=== PATIENT | female | born 1935 | race Caucasian/White ===

== ENCOUNTER 2019-12-31 23:23 | Observation (INO) | payer MEDICARE, OTHER ==
[~2019-12-31] VITALS: Ht 154.9 cm; Wt 55.0 kg
[~2019-12-31 23:23] MED LIST: ALEN70TA60 PO; ASCO1TAB13 PO; CALC600T2 PO; CINA30TA PO; GINK120C PO; GLUC-193 PO; LACT1CAP65 PO; LEVO100T PO; MAGN400C PO; MULT-1141 PO; PANT-47 PO; POTA20PA40 PO; THEO400T PO; TRIA10.8; VITA100D6 PO; [UNRECOGNIZED DRUG - OTHER] PO
[2019-12-31 23:49] LABS: BASOPHILS # (AUTO) 0.1 X10'3 (0-0.2); EOSINOPHILS # (AUTO) 0.4 X10'3 (0-0.9); EOSINOPHILS % (AUTO) 5.7 % (0-6); HEMOGLOBIN 12.6 g/dl (12.0-16.0); LYMPHOCYTES # (AUTO) 1.9 X10'3 (1.1-4.8); LYMPHOCYTES % (AUTO) 26.7 % (21-51); MEAN CORPUSCULAR HEMOGLOBIN 27.5 PG (27.0-31.0); MEAN CORPUSCULAR HGB CONC 33.1 g/dL (33.0-36.5); MEAN PLATELET VOLUME 8.6 FL (7.4-10.4); MONOCYTES # (AUTO) 0.8 X10'3 (0-0.9); MONOCYTES % (AUTO) 11.3 % (2-12); NEUTROPHILS % (AUTO) 55.3 % (42-75); PLATELET COUNT 368 X10'3 (140-440); RED BLOOD COUNT 4.59 X10'6 (4.20-5.60); RED CELL DISTRIBUTION WIDTH 14.7 % (11.5-14.5); WHITE BLOOD COUNT 7.2 X10'3 (4.5-11.0)
[2019-12-31 23:58] LABS: ALANINE AMINOTRANSFERASE 18 U/L (12-78); ALBUMIN 3.7 G/DL (3.4-5.0); ALKALINE PHOSPHATASE 85 IU/L (46-116); ANION GAP 7 (8-16); ASPARTATE AMINO TRANSFERASE 19 U/L (10-37); BILIRUBIN,TOTAL 0.3 MG/DL (0.1-1.0); BLOOD UREA NITROGEN 27 MG/DL (7-18); BUN/CREATININE RATIO 19.7 (6.6-38.0); CALCIUM 8.6 MG/DL (8.5-10.1); CHLORIDE 108 MMOL/L (99-107); CREATININE 1.37 MG/DL (0.40-0.90); GLUCOSE 126 MG/DL (70-104); POTASSIUM 3.5 MMOL/L (3.5-5.1); SODIUM 143 MMOL/L (135-145); TOTAL CARBON DIOXIDE 28.2 MMOL/L (24-32); TOTAL PROTEIN 7.4 G/DL (6.4-8.2); eGFR 37 ML/MIN
[2020-01-01] VITALS (10 sets, daily range): BP systolic 120–147; BP diastolic 41–65
--- NOTE | 2020-01-01 00:02 | NUR ---
PT STATES SHE HAS BEEN HAVING ALOT OF STRESS LATELY. SHE STATES HER MOM, WHOM IS 89 IS RECENTLY PLACED IN THE SNF. THAT SHE IS UP THERE EVERY DAY AND IT IS REALLY STRESSFUL TO HER.
[2020-01-01] MEDS ORDERED: normal saline 1000ml 1,000 ML IV ONE (01:22)
[2020-01-01] MEDS ORDERED: aspirin 81mg tab.chew PO ONE (01:25)
[2020-01-01 01:39] LABS: PARTIAL THROMBOPLASTIN TIME 28 SECONDS (22-32)
[2020-01-01] MEDS ORDERED: ondansetron/PF 4mg/2ml inj IV PRN (01:45)
[2020-01-01] MEDS ORDERED: magnesium 2GM in 50ml NS 50 ML IV PRN (01:45)
[2020-01-01] MEDS ORDERED: potassium CL 10mEq/100ml bag 100 ML IV PRN ×2 (01:45)
[2020-01-01] MEDS ORDERED: acetaminophen 325mg tablet PO PRN ×2 (01:45)
[2020-01-01] MEDS ORDERED: mag hydrox/Alum hydrox/simeth 30ml oral suspension PO PRN (01:45)
[2020-01-01] MEDS ORDERED: potassium Cl 20 mEq SR tablet PO PRN ×2 (01:45)
[2020-01-01] MEDS ORDERED: magnesium 4gm in 100ml NS 100 ML IV PRN (01:45)
[2020-01-01] MEDS ORDERED: magnesium hydroxide 30ml (MOM) UD suspension PO PRN (01:45)
[2020-01-01] MEDS ORDERED: magnesium Cl slow-release 64mg tablet PO PRN (01:45)
[2020-01-01 01:46] LABS: MAGNESIUM 2.1 MG/DL (1.5-2.4)
[2020-01-01] MEDS ORDERED: FLUT1BLS3 INH (01:56)
[2020-01-01] MEDS ORDERED: POTA8CAP20 PO (01:58)
[2020-01-01] MEDS ORDERED: ALBU18HF2 INH (01:58)
[2020-01-01] MEDS ORDERED: metoprolol tartrate 1mg/ml inj IV PRN (02:00)
[2020-01-01] MEDS ORDERED: aminophylline 250mg/10ml inj. IV PRN (02:00)
[2020-01-01] MEDS ORDERED: TRIA1CAP6 PO (02:00)
[2020-01-01] MEDS ORDERED: nitroGLYCERIN 0.4mg SUBLingual tab SL PRN ×2 (02:00)
[2020-01-01] MEDS ORDERED: LUTE1CAP5 PO (02:00)
[2020-01-01] MEDS ORDERED: ASPI81TA52 PO (02:00)
[2020-01-01] MEDS ORDERED: BUDE9TAB2 NAS (02:05)
--- NOTE | 2020-01-01 03:16 | NUR ---
pt placed on hospital bed for comfort
--- NOTE | 2020-01-01 03:34 | NUR ---
TUCKED PT INTO BED
--- NOTE | 2020-01-01 04:45 | NUR ---
NOTICED PATIENTS OXYGEN LEVEL DIPPED TO LOW 70S WHILE ASLEEP. I DIDN'T NOTICE ANY SLEEP APNEA. PLACED OXYGEN ON AT 2 LNC AND THAT INCREASED HER SATS TO HIGH 90S
--- NOTE | 2020-01-01 05:57 | NUR ---
PT SLEEPING. WILL ALLOW TO SLEEP.
[2020-01-01] MEDS ORDERED: regadenoson 0.4mg/5ml syringe IV ONE (06:00)
[2020-01-01] MEDS ORDERED: K and/or MAG REPLACEMENT MC SCH (08:00)
[2020-01-01] MEDS ORDERED: enoxaparin 40mg/0.4ml syringe SQ SCH (08:00)
--- NOTE | 2020-01-01 09:35 | NUR ---
Received report from Jazmin VILLANUEVA RN.
--- NOTE | 2020-01-01 10:00 | NUR ---
Arrived to room 316 A from ER at this time,
[2020-01-01] MEDS ORDERED: non-formulary drug (Alendronate Sodium* (Fosamax*) 1 TABLET) PO SCH (12:25)
[2020-01-01] MEDS ORDERED: albuterol 2.5 MG/3 ML nebule NEB PRN (12:40)
[2020-01-01] MEDS ORDERED: potassium chloride 8mEq ER tablet PO SCH (13:00)
--- NOTE | 2020-01-01 14:10 | NUR ---
Arrived back from [facility] at this time.
--- NOTE | 2020-01-01 14:59 | NUR ---
Paged hospitalist, "Leanna [phone]- Leroyan impression resulted for 316 Ursula Oropeza" Awaiting further orders.
--- NOTE | 2020-01-01 16:55 | NUR ---
Discussed discharge instructions with patient and family, no new meds ordered, to follow up with pcp, patient to make appointment. Tele dc'd, IV d/c'd with cathlon intact. Belongings sent with patient. Escorted out via [facility] staff via ambulation, without event. Eager to go home and thankful she didn't have a heart attack.
[2020-01-01] MEDS ORDERED: budesonide 0.5mg/2ml UD nebule IH SCH (20:00)
[2020-01-02] MEDS ORDERED: enoxaparin 30mg/0.3ml syringe SQ SCH (08:00)
[2020-01-02] MEDS ORDERED: multivitamins, therapeutics tablet PO SCH (08:00)
[2020-01-02] MEDS ORDERED: magnesium oxide 400mg tablet PO SCH (08:00)
[2020-01-02] MEDS ORDERED: FLUTICASONE INH SCH (08:00)
[2020-01-02] MEDS ORDERED: cinacalcet 30mg tablet PO SCH ×2 (08:00)
[2020-01-02] MEDS ORDERED: ZEAXANTHIN PO SCH (08:00)
[2020-01-02] MEDS ORDERED: aspirin 81mg tablet.DR PO SCH (08:00)
[2020-01-02] MEDS ORDERED: vitamin E 400 unit capsule PO SCH (08:00)
[2020-01-02] MEDS ORDERED: VILANTEROL INH SCH (08:00)
[2020-01-02] MEDS ORDERED: levoTHYROXINE 100mcg tablet PO SCH (08:00)
[2020-01-02] MEDS ORDERED: THEOPHYLLINE ANHYDROUS 400 MG PO SCH (08:00)
[2020-01-02] MEDS ORDERED: triamterene/HCTZ 37.5/25mg tablet PO SCH (08:00)
[2020-01-02] MEDS ORDERED: LUTEIN PO SCH (08:00)
--- NOTE | 2020-01-04 11:49 | NUR ---
Case management DC follow up: spoke to pt via telephone. reports, "doing" well. Denies cp, emergent general pain, SOB, resp distress, NV, dizziness, abd pain, HARRIS, diaphoresis. remains afebrile. verbalizes understanding of meds, why prescribed, taking as ordered, no ase r/t polypharmacy. acknowledges need to confirm follow up appt w/PCP/Pepple to discuss medications as pertains to CKD stage 3 as well as referral for home health clinician. Verbalizes understanding of s/s that would warrant 9-11/ER visit for evaluation. needs met, questions answered at DC. No further questions at this time.
== END 2020-01-01 16:55 | disposition home or self-care (01) ==
LOC: ER 23:23 → ED HOLD 01-01 02:30 → MED 3N 01-01 10:00
PROVIDERS: ADMIT Hospitalist; ATTEND Internal Medicine
DX: R07.89 Other chest pain (principal); E03.9 Hypothyroidism, unspecified; J45.909 Unspecified asthma, uncomplicated; K21.9 Gastro-esophageal reflux disease without esophagitis; M81.0 Age-related osteoporosis without current pathological fracture; Z79.899 Other long term (current) drug therapy; Z88.8 Allergy status to other drugs, medicaments and biological substances
CPT/HCPCS: 36415; 71045; 78452; 80053; 83735; 83880; 84484; 85025; 85610; 85730; 87081; 93005; 93017; 93306; 96372; 99285; A9500; G0378; J2785; J7030; J1650

== ENCOUNTER 2022-12-26 09:25 | Outpatient (CLI) | payer MEDICARE, OTHER ==
[~2022-12-26 09:25] MED LIST changes: +ALBU18HF2 INH; +ASPI81TA52 PO; +BUDE9TAB2 NAS; -CALC600T2 PO; +FLUT1BLS3 INH; -GINK120C PO; -LACT1CAP65 PO; +LUTE1CAP5 PO; -PANT-47 PO; -POTA20PA40 PO; +POTA8CAP20 PO; +TRIA1CAP88 PO
[2022-12-26 09:59] LABS: BASOPHILS # (AUTO) 0.1 X10'3 (0-0.2); BASOPHILS % (AUTO) 1.1 % (0-1); EOSINOPHILS # (AUTO) 0.3 X10'3 (0-0.9); EOSINOPHILS % (AUTO) 5.8 % (0-6); HEMATOCRIT 34.3 % (35.0-45.0); HEMOGLOBIN 11.5 g/dl (12.0-16.0); LYMPHOCYTES # (AUTO) 1.1 X10'3 (1.1-4.8); LYMPHOCYTES % (AUTO) 23.5 % (21-51); MEAN CORPUSCULAR HGB CONC 33.5 g/dL (33.0-36.5); MEAN CORPUSCULAR VOLUME 86.5 FL (78-98); MEAN PLATELET VOLUME 8.9 FL (7.4-10.4); MONOCYTES # (AUTO) 0.6 X10'3 (0-0.9); MONOCYTES % (AUTO) 11.5 % (2-12); NEUTROPHILS # (AUTO) 2.8 X10'3 (1.8-7.7); NEUTROPHILS % (AUTO) 58.1 % (42-75); PLATELET COUNT 261 X10'3 (140-440); RED BLOOD COUNT 3.97 X10'6 (4.20-5.60); RED CELL DISTRIBUTION WIDTH 15.6 % (11.5-14.5); WHITE BLOOD COUNT 4.8 X10'3 (4.5-11.0)
[2022-12-26 10:12] LABS: APTT 29 SECONDS (22-32)
[2022-12-26 10:23] LABS: ALANINE AMINOTRANSFERASE 21 U/L (12-78); ALBUMIN 4.2 G/DL (3.4-5.0); ALBUMIN/GLOBULIN RATIO 1.3 (1.1-1.5); ALKALINE PHOSPHATASE 88 IU/L (46-116); ANION GAP 13 (8-16); ASPARTATE AMINO TRANSFERASE 28 U/L (10-37); BILIRUBIN,TOTAL 0.5 MG/DL (0.1-1.0); BLOOD UREA NITROGEN 39 MG/DL (7-18); BUN/CREATININE RATIO 21.4 (6.6-38.0); CALCIUM 8.7 MG/DL (8.5-10.1); CHLORIDE 103 MMOL/L (99-107); CREATININE 1.82 MG/DL (0.40-0.90); GLUCOSE 85 MG/DL (70-104); POTASSIUM 3.6 MMOL/L (3.5-5.1); SODIUM 142 MMOL/L (135-145); TOTAL PROTEIN 7.5 G/DL (6.4-8.2); eGFR 26 ML/MIN
[2022-12-26] MEDS ORDERED: IODIXANOL 320 MG/ML INFUS..BTL 100ML IV ONE (10:52)
== END 2022-12-26 23:59 | disposition home or self-care (01) ==
LOC: RAD 09:25
PROVIDERS: ATTEND Internal Medicine Cardiovascular Disease
DX: I51.7 Cardiomegaly (principal); I35.0 Nonrheumatic aortic (valve) stenosis; R06.02 Shortness of breath; I65.29 Occlusion and stenosis of unspecified carotid artery; I70.0 Atherosclerosis of aorta; M47.814 Spondylosis without myelopathy or radiculopathy, thoracic region; Z98.890 Other specified postprocedural states
CPT/HCPCS: 36415; 71046; 71275; 74174; 80053; 85025; 85610; 85730; 94010; 94727; 94729; J3490; Q9967

== ENCOUNTER 2023-01-21 10:30 | Inpatient (IN) | payer MEDICARE, OTHER ==
[~2023-01-21] VITALS: Ht 154.9 cm; Wt 98.2 kg
[~2023-01-21 10:30] MED LIST changes: -ALEN70TA60 PO; -ASCO1TAB13 PO; -CINA30TA PO; -GLUC-193 PO; -MAGN400C PO; -MULT-1141 PO; -TRIA10.8; -VITA100D6 PO; -[UNRECOGNIZED DRUG - OTHER] PO
[2023-02-18 14:43] LABS: BASOPHILS # (AUTO) 0.1 X10'3 (0-0.2); BASOPHILS % (AUTO) 1.2 % (0-1); EOSINOPHILS # (AUTO) 0.3 X10'3 (0-0.9); EOSINOPHILS % (AUTO) 6.4 % (0-6); LYMPHOCYTES # (AUTO) 1.2 X10'3 (1.1-4.8); MEAN CORPUSCULAR HEMOGLOBIN 28.8 PG (27.0-31.0); MEAN CORPUSCULAR HGB CONC 33.1 g/dL (33.0-36.5); MEAN CORPUSCULAR VOLUME 87.1 FL (78-98); MONOCYTES # (AUTO) 0.5 X10'3 (0-0.9); MONOCYTES % (AUTO) 10.2 % (2-12); NEUTROPHILS # (AUTO) 2.6 X10'3 (1.8-7.7); NEUTROPHILS % (AUTO) 56.2 % (42-75); PRE OP HEMATOCRIT 34.9 % (35.0-45.0); PRE OP HEMOGLOBIN 11.5 g/dL (12.0-16.0); PRE OP PLATELET COUNT 261 X10'3 (140-440); RED BLOOD COUNT 4.01 X10'6 (4.20-5.60); RED CELL DISTRIBUTION WIDTH 14.3 % (11.5-14.5)
[2023-02-18 14:47] LABS: CLARITY,URINE SLIGHTLY CLOUDY (Clear); COLOR,URINE YELLOW (Yellow); GLUCOSE, URINE NEGATIVE (Neg); KETONES,URINE NEGATIVE (Neg); LEUKOCYTE ESTERASE ,URINE TRACE (Neg); NITRITES, URINE NEGATIVE (Neg); OCCULT BLOOD,URINE TRACE-INTACT (Neg); PROTEIN,URINE NEGATIVE (Neg); UROBILINOGEN,URINE 0.2 E.U/dL (0.2-1.0)
[2023-02-18 14:51] LABS: PRE OP PROTIME 10.5 SECONDS (9.0-12.0)
[2023-02-18 15:00] LABS: UA COLLECTION TYPE CLN CATCH MIDSTREAM
[2023-02-18 15:01] LABS: HYALINE CASTS 0-3 /LPF (NEGATIVE); MUCUS STRANDS FEW /LPF (Neg); SQUAMOUS EPITHELIAL CELL,UR MODERATE /LPF (FEW); TRANSITIONAL EPI CELLS,URINE MODERATE /HPF
[2023-02-18 15:02] LABS: BACTERIA,URINE FEW /HPF (Neg); RBC,URINE 0-2 /HPF (0-2); WBC,URINE 0-4 /HPF (0-4)
[2023-02-18 15:06] LABS: ALBUMIN 3.9 G/DL (3.4-5.0); ALBUMIN/GLOBULIN RATIO 1.1 (1.1-1.5); ALKALINE PHOSPHATASE 95 IU/L (46-116); BLOOD UREA NITROGEN 44 MG/DL (7-18); BUN/CREATININE RATIO 29.3 (10.0-20.0); CALCIUM 8.8 MG/DL (8.5-10.1); CHLORIDE 104 MMOL/L (99-107); PRE OP ALT 20 U/L (30-65); PRE OP ANION GAP 9 (8-16); PRE OP AST 29 U/L (10-37); PRE OP BILIRUB, TOTAL 0.3 MG/DL (0.0-1.0); PRE OP GLUCOSE 80 MG/DL (70-104); PRE OP SODIUM 141 MMOL/L (135-145); TOTAL CARBON DIOXIDE 28.4 MMOL/L (24-32); TOTAL PROTEIN 7.6 G/DL (6.4-8.2); eGFR 33 ML/MIN
[2023-02-18 15:08] LABS: PRE OP POTASSIUM 3.2 MMOL/L (3.4-5.1)
[2023-02-20] MEDS ORDERED: MUPI30OI3 TOP (11:53)
[2023-02-20] MEDS ORDERED: AZEL23SP2 (11:53)
[2023-02-20] MEDS ORDERED: FAMO40TA59 PO (11:56)
[2023-02-20] MEDS ORDERED: LEVO88CA4 PO (11:57)
[2023-02-20] MEDS ORDERED: CHOL100025 PO (12:21)
[2023-02-20] MEDS ORDERED: VITA400T10 PO (12:21)
[2023-02-20] MEDS ORDERED: LACT1CAP75 PO (12:22)
[2023-02-20] MEDS ORDERED: BIOT1CAP3 PO (12:22)
[2023-02-20] MEDS ORDERED: ZINC50CA2 PO (12:23)
[2023-02-20] MEDS ORDERED: ASCO500C17 PO (12:23)
[2023-02-20] MEDS ORDERED: CYAN50009 PO (12:23)
[2023-02-21] VITALS (21 sets, daily range): BP systolic 95–160; BP diastolic 47–74
[2023-02-21] MEDS ORDERED: ringers solution, lacted 1,000 ML IV SCH (05:00)
[2023-02-21] MEDS ORDERED: vancomycin/NS 1 GM in NS 250 ML IV ONE (05:30)
[2023-02-21] MEDS ORDERED: ondansetron/PF 4mg/2ml inj IV PRN ×2 (05:30→13:35)
[2023-02-21] MEDS ORDERED: cefazolin 2gm/D5W 100mL 100 ML IV ONE (05:30)
[2023-02-21] MEDS ORDERED: aspirin 325mg tablet PO ONE (05:30)
[2023-02-21] MEDS ORDERED: nitroPRUSSIDE (NIPRIDE) (200MCG/ML) 100ML Drip IV SCH (05:30)
[2023-02-21] MEDS ORDERED: phenylephrine inj 50 MG in normal saline 250ml IV solN IV SCH (05:30)
[2023-02-21] MEDS ORDERED: famotidine 20mg tablet PO ONE (05:30)
[2023-02-21] MEDS ORDERED: protamine sulfate 10mg/ml inj. ONE (06:37)
[2023-02-21 10:48] LABS: ALANINE AMINOTRANSFERASE 22 U/L (12-78); ALBUMIN 3.7 G/DL (3.4-5.0); ALBUMIN/GLOBULIN RATIO 1.1 (1.1-1.5); ALKALINE PHOSPHATASE 89 IU/L (46-116); ANION GAP 9 (8-16); ASPARTATE AMINO TRANSFERASE 24 U/L (10-37); BILIRUBIN,TOTAL 0.4 MG/DL (0.1-1.0); BLOOD UREA NITROGEN 47 MG/DL (7-18); BUN/CREATININE RATIO 35.6 (10.0-20.0); CALCIUM 8.6 MG/DL (8.5-10.1); CHLORIDE 107 MMOL/L (99-107); CREATININE 1.32 MG/DL (0.40-0.90); GLUCOSE 96 MG/DL (70-104); POTASSIUM 4.2 MMOL/L (3.5-5.1); SODIUM 143 MMOL/L (135-145); TOTAL CARBON DIOXIDE 27.3 MMOL/L (24-32); TOTAL PROTEIN 7.1 G/DL (6.4-8.2); eGFR 38 ML/MIN
[2023-02-21] MEDS ORDERED: midazolam 1 mg/ML 2ml injection ONE (11:50)
[2023-02-21] MEDS ORDERED: fentaNYL /PF 50mcg/ml 5ml ampule ONE (11:51)
[2023-02-21] MEDS ORDERED: iohexol 350MG/ML 100ml bottle IV ONE (12:08)
[2023-02-21] MEDS ORDERED: heparin 1,000 UNITS/NS 500ml 500 ML ONE (12:10)
[2023-02-21] MEDS ORDERED: LIDOcaine 1% 30ml preserv. free vial ONE (12:10)
[2023-02-21] MEDS ORDERED: albuterol 2.5 MG/3 ML nebule NEB PRN (12:30)
--- NOTE | 2023-02-21 12:56 | NUR ---
Received from OR via KRIS, accompanied by Anesthesiologist TRISH and report given by Anesthesiolgist. PATIENT WITH 20G PIV IN RIGHT UE RUNNING LR AT 100. DENIES PAIN. MOVES ALL TOES. CARLI DRESSING TO RIGHT FOOT THAT IS CDI. + MOVEMENT AND SENSATION. GATCHED FOOT OF BED UPON ARRIVAL. PATIENT ALERT AND ORIENTED. EDUCATED ON PROPER ELEVATION.
[2023-02-21] MEDS ORDERED: LIDOcaine 1%/PF 5ML 10 MG/ML VIAL ONE (13:34)
[2023-02-21] MEDS ORDERED: diphenhydrAMINE 50 mg/ml inj ONE (13:34)
[2023-02-21] MEDS ORDERED: propofol inj 20 ML IV ONE (13:34)
[2023-02-21] MEDS ORDERED: heparin 1,000unit/ml 10ml vial 10 ML ONE (13:34)
[2023-02-21] MEDS ORDERED: pantoprazole 40mg Tablet.DR PO PRN (13:35)
[2023-02-21] MEDS ORDERED: potassium CL 10mEq/100ml bag 100 ML IV PRN (13:35)
[2023-02-21] MEDS ORDERED: normal saline 1000ml 1,000 ML IV SCH (13:35)
[2023-02-21] MEDS ORDERED: docusate sod 100mg capsule PO PRN (13:35)
[2023-02-21] MEDS ORDERED: diphenhydrAMINE 25mg capsule PO PRN (13:35)
[2023-02-21] MEDS ORDERED: proCHLORperazine 10 MG/2 ml inj IV PRN (13:35)
[2023-02-21] MEDS ORDERED: potassium Cl 20 mEq SR tablet PO PRN (13:35)
[2023-02-21] MEDS ORDERED: acetaminophen 325mg tablet PO PRN (13:35)
[2023-02-21] MEDS ORDERED: HYDROcodone/acetaminophen 5mg/325mg tablet PO PRN (13:35)
[2023-02-21] MEDS ORDERED: ALPRAZolam 0.25mg tablet PO PRN (13:35)
[2023-02-21] MEDS ORDERED: potassium Cl 40MEQ/1/2NS 520ml 520 ML IV PRN (13:35)
[2023-02-21] MEDS ORDERED: magnesium 4gm in 100ml NS 100 ML IV PRN (13:35)
[2023-02-21] MEDS ORDERED: potassium Cl 20mEq/100mL bag 100 ML IV PRN (13:35)
[2023-02-21] MEDS ORDERED: magnesium 2GM in 50ml NS 50 ML IV PRN (13:35)
[2023-02-21] MEDS ORDERED: potassium Cl 40MEQ/270ML bag 250 ML IV PRN (13:35)
[2023-02-21] MEDS ORDERED: labetalol 20mg/4ml (5mg/ml) syringe IV PRN (13:35)
[2023-02-21] MEDS ORDERED: hydrALAZINE 20mg/ml inj. IV PRN (13:35)
[2023-02-21] MEDS ORDERED: albumin (Human) 5% 250ml 750 ML IV ONE (15:10)
--- NOTE | 2023-02-21 15:40 | NUR ---
REPORT GIVEN AND ALL QUESTIONS ANSWERED. PATIENT TRANSFERRED TO PCU. LABELED BELONGINGS PRESENT AND DELIVERED TO ROOM. RN PRESENT ALL CRITERIA FOR TRANSFER TO THE FLOOR HAS BEEN ACHIEVED. VSS. PAIN AT A TOLERABLE LEVEL. BED LOW, CALL LIGHT PRESENT AND 2 RAILS DOWN. RN AWARE THAT PATIENT HAS ARRIVED. TO ACCEPT CARE OF PATIENT Addendum: 02/21/23 at 1619 by Mara Bucio RN Amended: Links added.
[2023-02-21] MEDS: ceFAZolin 1GM/D5W- ADD-VANTAGE 50 ML IV SCH ×2 (16:00→23:25)
[2023-02-21] MEDS: sod chloride 0.9% 10ml flush syringe IV SCH ×2 (16:23→23:24)
[2023-02-21] MEDS: famotidine 20mg tablet PO SCH (19:09)
[2023-02-21] MEDS: vancomycin/NS 1 GM ADD-VANTAGE 250 ML IV SCH (19:11)
[2023-02-21] MEDS: budesonide 0.5mg/2ml UD nebule IH SCH (20:07)
[2023-02-21] MEDS ORDERED: AZELASTINE NS SCH (21:00)
[2023-02-21] MEDS ORDERED: mupirocin 2% ointment 22GM TP SCH (21:00)
[2023-02-21] MEDS ORDERED: FLUTICASONE NS SCH (21:00)
[2023-02-22 07:02] VITALS: BP 110/41
[2023-02-22] MEDS: budesonide 0.5mg/2ml UD nebule IH SCH (07:35)
[2023-02-22] MEDS ORDERED: potassium chloride 8mEq ER tablet PO SCH (08:00)
[2023-02-22] MEDS ORDERED: theophylline anhydrous 100mg ER capsule 24-hour PO SCH (08:00)
[2023-02-22] MEDS ORDERED: Lutein/Zeaxanthin (Ocuvite Lutein 25-5 mg Softgel) 1 CAP PO SCH (08:00)
[2023-02-22] MEDS ORDERED: triamterene/HCTZ 37.5/25mg tablet PO SCH (08:00)
[2023-02-22] MEDS ORDERED: cyanocobalamin 500mcg tablet PO SCH (08:00)
[2023-02-22] MEDS ORDERED: lactobacillus rhamnosus 10,000 MMU CELLS/CAPSULE PO SCH (08:00)
[2023-02-22] MEDS ORDERED: cholecalciferol (vitamin D3) 1,000 unit (25mcg) tablet PO SCH (08:00)
[2023-02-22] MEDS ORDERED: aspirin 81mg, enteric-coated 1 TAB TABLET.DR PO SCH (08:00)
[2023-02-22] MEDS ORDERED: ascorbic acid 500mg tablet PO SCH (08:00)
[2023-02-22] MEDS ORDERED: ZINC ACETATE PO SCH (08:00)
[2023-02-22] MEDS: sod chloride 0.9% 10ml flush syringe IV SCH ×2 (08:00→16:07)
[2023-02-22] MEDS ORDERED: aspirin 81mg tab.chew PO SCH (08:30)
[2023-02-22 08:45] LABS: BASOPHILS % (AUTO) 0.7 % (0-1); EOSINOPHILS # (AUTO) 0.1 X10'3 (0-0.9); EOSINOPHILS % (AUTO) 1.2 % (0-6); HEMATOCRIT 32.5 % (35.0-45.0); HEMOGLOBIN 10.8 g/dl (12.0-16.0); LYMPHOCYTES # (AUTO) 0.7 X10'3 (1.1-4.8); LYMPHOCYTES % (AUTO) 11.1 % (21-51); MEAN CORPUSCULAR HEMOGLOBIN 28.9 PG (27.0-31.0); MEAN CORPUSCULAR HGB CONC 33.1 g/dL (33.0-36.5); MEAN CORPUSCULAR VOLUME 87.4 FL (78-98); MEAN PLATELET VOLUME 9.7 FL (7.4-10.4); MONOCYTES % (AUTO) 17.8 % (2-12); NEUTROPHILS # (AUTO) 4.1 X10'3 (1.8-7.7); NEUTROPHILS % (AUTO) 69.2 % (42-75); PLATELET COUNT 195 X10'3 (140-440); RED BLOOD COUNT 3.72 X10'6 (4.20-5.60); RED CELL DISTRIBUTION WIDTH 14.1 % (11.5-14.5); WHITE BLOOD COUNT 5.9 X10'3 (4.5-11.0)
[2023-02-22 09:19] LABS: ALANINE AMINOTRANSFERASE 15 U/L (12-78); ALBUMIN 3.2 G/DL (3.4-5.0); ALBUMIN/GLOBULIN RATIO 1.1 (1.1-1.5); ALKALINE PHOSPHATASE 86 IU/L (46-116); ANION GAP 10 (8-16); ASPARTATE AMINO TRANSFERASE 33 U/L (10-37); BILIRUBIN,TOTAL 0.4 MG/DL (0.1-1.0); BLOOD UREA NITROGEN 33 MG/DL (7-18); BUN/CREATININE RATIO 21.7 (10.0-20.0); CALCIUM 7.8 MG/DL (8.5-10.1); CHLORIDE 108 MMOL/L (99-107); CREATININE 1.52 MG/DL (0.40-0.90); GLUCOSE 97 MG/DL (70-104); MAGNESIUM 1.8 MG/DL (1.5-2.4); POTASSIUM 3.3 MMOL/L (3.5-5.1); SODIUM 145 MMOL/L (135-145); TOTAL PROTEIN 6.2 G/DL (6.4-8.2); eGFR 33 ML/MIN
[2023-02-22] MEDS: famotidine 20mg tablet PO SCH (10:10)
[2023-02-22] MEDS: ceFAZolin 1GM/D5W- ADD-VANTAGE 50 ML IV SCH (10:15)
[2023-02-22] MEDS: vancomycin/NS 1 GM ADD-VANTAGE 250 ML IV SCH (10:15)
[2023-02-22 11:20] VITALS: BP 110/35
[2023-02-22] MEDS ORDERED: potassium Cl 40MEQ/1/2NS 520ml 520 ML IV ONE ×2 (14:15→18:25)
[2023-02-22 15:37] VITALS: BP 106/68
[2023-02-22] MEDS ORDERED: POTASSIUM BICARB 20meq eff tab 20 MEQ TABLET.EFF PO ONE (16:05)
[2023-02-23] MEDS ORDERED: levoTHYROXINE 88mcg tablet PO SCH (07:00)
[2023-02-23] MEDS ORDERED: levoTHYROXINE 100mcg tablet PO SCH (07:00)
[2023-02-24] MEDS ORDERED: famotidine 20mg tablet PO SCH (08:00)
== END 2023-02-22 17:52 | disposition home or self-care (01) | DRG 266 ==
LOC: PAS IN 02-21 08:13 → EDSTATUS 02-21 10:30 → PCU 3S 02-21 15:46
PROVIDERS: ADMIT Internal Medicine Cardiovascular Disease; ATTEND Internal Medicine Cardiovascular Disease
PROC: B41D1ZZ Fluoroscopy of Aorta and Bilateral Lower Extremity Arteries using Low Osmolar Contrast (ICD-10-PCS; 2023-02-21)
PROC: B24BZZ4 Ultrasonography of Heart with Aorta, Transesophageal (ICD-10-PCS; 2023-02-21)
PROC: 02RF38Z Replacement of Aortic Valve with Zooplastic Tissue, Percutaneous Approach (ICD-10-PCS; principal; 2023-02-21 12:21)
DX: I35.0 Nonrheumatic aortic (valve) stenosis (principal); Z00.6 Encounter for examination for normal comparison and control in clinical research program; I50.33 Acute on chronic diastolic (congestive) heart failure; I13.0 Hypertensive heart and chronic kidney disease with heart failure and stage 1 through stage 4 chronic kidney disease, or unspecified chronic kidney disease; E03.9 Hypothyroidism, unspecified; E87.6 Hypokalemia; M54.9 Dorsalgia, unspecified; F41.9 Anxiety disorder, unspecified; G89.29 Other chronic pain; I73.9 Peripheral vascular disease, unspecified; J45.909 Unspecified asthma, uncomplicated; N18.9 Chronic kidney disease, unspecified; Z79.51 Long term (current) use of inhaled steroids; Z79.82 Long term (current) use of aspirin
CPT/HCPCS: 33361; 36415; 71045; 71046; 76937; 80053; 81001; 82948; 83735; 83880; 84443; 85025; 85347; 85610; 85730; 86885; 86900; 86901; 86920; 87081; 87088; 93005; 93308; 94640; 94760; A4618; A6258; A6449; C1756; C1760; C1769; C1894; G0378; J0690; J1200; J1644; J2250; J2370; J2704; J2720; J3010; J3370; J3480; J3490; J7030; J7040; J7050; J7120; P9045; Q9967

== ENCOUNTER 2023-05-31 07:55 | Emergency (ER) | payer MEDICARE, OTHER ==
[~2023-05-31] VITALS: Ht 157.5 cm; Wt 57.0 kg
[~2023-05-31 07:55] MED LIST changes: +ASCO500C17 PO; +AZEL23SP2; +BIOT1CAP3 PO; +CHOL100025 PO; +CYAN50009 PO; +FAMO40TA59 PO; +LACT1CAP75 PO; +LEVO88CA4 PO; +MUPI30OI3 TOP; +VITA400T10 PO; +ZINC50CA2 PO
[2023-05-31 08:29] LABS: CLARITY,URINE TURBID (Clear); COLOR,URINE YELLOW (Yellow); GLUCOSE, URINE NEGATIVE (Neg); KETONES,URINE NEGATIVE (Neg); LEUKOCYTE ESTERASE ,URINE LARGE (Neg); NITRITES, URINE POSITIVE (Neg); OCCULT BLOOD,URINE LARGE (Neg); PH,URINE 6.5 (4.8-8.0); PROTEIN,URINE 100 mg/dl (Neg); UROBILINOGEN,URINE 0.2 E.U/dL (0.2-1.0)
[2023-05-31 08:33] LABS: UA COLLECTION TYPE CLN CATCH MIDSTREAM
[2023-05-31 08:37] LABS: BACTERIA,URINE 4+ /HPF (Neg); MUCUS STRANDS NONE SEEN /LPF (Neg); SQUAMOUS EPITHELIAL CELL,UR NONE SEEN /LPF (FEW); TRANSITIONAL EPI CELLS,URINE FEW /HPF; WBC CLUMPS,URINE MANY /HPF (NEGATIVE); WBC,URINE TNTC /HPF (0-4)
[2023-05-31] MEDS ORDERED: cephalexin 250mg capsule PO ONE (09:15)
[2023-05-31] MEDS ORDERED: CEPH-585 PO (09:19)
[2023-05-31 09:28] VITALS: BP 144/61
== END 2023-05-31 09:31 | disposition home or self-care (01) ==
LOC: ER 07:56
DX: N39.0 Urinary tract infection, site not specified (principal); J45.909 Unspecified asthma, uncomplicated; K21.9 Gastro-esophageal reflux disease without esophagitis; Z88.8 Allergy status to other drugs, medicaments and biological substances; Z88.5 Allergy status to narcotic agent
CPT/HCPCS: 81001; 87077; 87088; 87186; 99284

== ENCOUNTER 2023-08-30 12:22 | Emergency (ER) | payer MEDICARE, OTHER ==
[~2023-08-30] VITALS: Ht 154.9 cm; Wt 58.2 kg
[~2023-08-30 12:22] MED LIST changes: +CEPH-585 PO
[2023-08-30 12:25] VITALS: TEMP 99
[2023-08-30 13:22] LABS: BILIRUBIN,URINE NEGATIVE (Neg); CLARITY,URINE CLOUDY (Clear); COLOR,URINE STRAW (Yellow); GLUCOSE, URINE NEGATIVE (Neg); KETONES,URINE NEGATIVE (Neg); LEUKOCYTE ESTERASE ,URINE MODERATE (Neg); NITRITES, URINE NEGATIVE (Neg); OCCULT BLOOD,URINE MODERATE (Neg); PH,URINE 6.5 (4.8-8.0); PROTEIN,URINE NEGATIVE (Neg); UROBILINOGEN,URINE 0.2 E.U/dL (0.2-1.0)
[2023-08-30 13:32] LABS: UA COLLECTION TYPE CLN CATCH MIDSTREAM
[2023-08-30 13:33] LABS: BACTERIA,URINE FEW /HPF (Neg); MUCUS STRANDS NONE SEEN /LPF (Neg); RBC,URINE 0-2 /HPF (0-2); SQUAMOUS EPITHELIAL CELL,UR FEW /LPF (FEW); WBC CLUMPS,URINE MODERATE /HPF (NEGATIVE); WBC,URINE 50-100 /HPF (0-4)
[2023-08-30] MEDS ORDERED: CEPH-585 PO (13:42)
[2023-08-30 13:55] VITALS: BP 124/51; PULSE 69; RESP 16; O2SAT 100
--- NOTE | 2023-08-30 17:47 | NUR ---
I agree with the assessment per Lou Streeter LVN
== END 2023-08-30 13:57 | disposition home or self-care (01) ==
LOC: ER 12:22
DX: N39.0 Urinary tract infection, site not specified (principal); J45.909 Unspecified asthma, uncomplicated; K21.9 Gastro-esophageal reflux disease without esophagitis; E03.9 Hypothyroidism, unspecified; Z88.8 Allergy status to other drugs, medicaments and biological substances; Z88.5 Allergy status to narcotic agent; Z88.2 Allergy status to sulfonamides; Z79.82 Long term (current) use of aspirin; Z79.899 Other long term (current) drug therapy; Z79.2 Long term (current) use of antibiotics
CPT/HCPCS: 81001; 87077; 87088; 87186; 99284

== ENCOUNTER 2023-11-29 16:04 | Emergency (ER) | payer MEDICARE, OTHER ==
[~2023-11-29] VITALS: Ht 149.9 cm; Wt 58.2 kg
[2023-11-29 16:09] VITALS: BP 166/48; PULSE 77; RESP 16; TEMP 98.2; O2SAT 98
[2023-11-29 16:44] LABS: BILIRUBIN,URINE NEGATIVE (Neg); CLARITY,URINE CLOUDY (Clear); COLOR,URINE YELLOW (Yellow); GLUCOSE, URINE NEGATIVE (Neg); KETONES,URINE NEGATIVE (Neg); LEUKOCYTE ESTERASE ,URINE MODERATE (Neg); NITRITES, URINE NEGATIVE (Neg); OCCULT BLOOD,URINE MODERATE (Neg); PROTEIN,URINE TRACE mg/dl (Neg); UROBILINOGEN,URINE 0.2 E.U/dL (0.2-1.0)
[2023-11-29 16:46] LABS: UA COLLECTION TYPE CLN CATCH MIDSTREAM
[2023-11-29 16:47] LABS: WBC,URINE TNTC /HPF (0-4)
[2023-11-29 16:54] LABS: RBC,URINE 50-100 /HPF (0-2)
[2023-11-29 16:56] LABS: WBC CLUMPS,URINE MANY /HPF (NEGATIVE)
[2023-11-29 16:58] LABS: BACTERIA,URINE 1+ /HPF (Neg)
[2023-11-29 16:59] LABS: SQUAMOUS EPITHELIAL CELL,UR FEW /LPF (FEW)
[2023-11-29 17:01] LABS: TRANSITIONAL EPI CELLS,URINE MODERATE /HPF
[2023-11-29 17:04] LABS: MUCUS STRANDS FEW /LPF (Neg)
[2023-11-29] MEDS ORDERED: CEPH-585 PO (17:24)
== END 2023-11-29 17:38 | disposition home or self-care (01) ==
LOC: ER 16:05
DX: N39.0 Urinary tract infection, site not specified (principal); J45.909 Unspecified asthma, uncomplicated; K21.9 Gastro-esophageal reflux disease without esophagitis; E03.9 Hypothyroidism, unspecified
CPT/HCPCS: 81001; 87077; 87088; 87186; 99284

== ENCOUNTER 2024-02-21 18:09 | Emergency (ER) | payer MEDICARE, OTHER ==
[~2024-02-21] VITALS: Ht 154.9 cm; Wt 58.8 kg
[~2024-02-21 18:09] MED LIST changes: +BUDE9TAB NAS; -BUDE9TAB2 NAS
[2024-02-21 18:10] VITALS: BP 156/57; PULSE 76; RESP 16; TEMP 99.3; O2SAT 99
[2024-02-21 19:21] LABS: BILIRUBIN,URINE NEGATIVE (Neg); CLARITY,URINE CLOUDY (Clear); COLOR,URINE YELLOW (Yellow); GLUCOSE, URINE NEGATIVE (Neg); KETONES,URINE NEGATIVE (Neg); LEUKOCYTE ESTERASE ,URINE MODERATE (Neg); NITRITES, URINE NEGATIVE (Neg); OCCULT BLOOD,URINE LARGE (Neg); PH,URINE 6.5 (4.8-8.0); PROTEIN,URINE >=300 mg/dl (Neg); UA COLLECTION TYPE CLN CATCH MIDSTREAM; UROBILINOGEN,URINE 0.2 E.U/dL (0.2-1.0)
[2024-02-21 19:28] LABS: BACTERIA,URINE 2+ /HPF (Neg); RBC,URINE 50-100 /HPF (0-2); WBC,URINE TNTC /HPF (0-4)
[2024-02-21 19:29] LABS: MUCUS STRANDS NONE SEEN /LPF (Neg); SQUAMOUS EPITHELIAL CELL,UR FEW /LPF (FEW)
[2024-02-21] MEDS ORDERED: CEPH-585 PO (19:44)
[2024-02-21] MEDS: cephalexin 500mg capsule PO ONE (19:59)
[2024-02-21] MEDS: phenazopyridine 100mg tablet PO ONE (20:00)
== END 2024-02-21 20:06 | disposition home or self-care (01) ==
LOC: ER 18:10
DX: N39.0 Urinary tract infection, site not specified (principal); J45.909 Unspecified asthma, uncomplicated; K21.9 Gastro-esophageal reflux disease without esophagitis; E03.9 Hypothyroidism, unspecified; Z88.8 Allergy status to other drugs, medicaments and biological substances; Z88.5 Allergy status to narcotic agent; Z79.899 Other long term (current) drug therapy; Z79.82 Long term (current) use of aspirin; Z79.2 Long term (current) use of antibiotics
CPT/HCPCS: 81001; 87077; 87088; 87186; 99283

== ENCOUNTER 2024-07-28 10:30 | Outpatient (CLI) | payer MEDICARE, OTHER | END 2024-07-28 23:59 | disposition home or self-care (01) | LOC: VAS 10:30 | PROVIDERS: ATTEND Surgery | DX: I65.23 Occlusion and stenosis of bilateral carotid arteries (principal) | CPT/HCPCS: 93880 ==

== ENCOUNTER 2025-01-08 16:53 | Emergency (ER) | payer MEDICARE, OTHER ==
[~2025-01-08] VITALS: Ht 152.4 cm; Wt 58.2 kg
[~2025-01-08 16:53] MED LIST changes: -CEPH-585 PO
[2025-01-08 16:59] VITALS: TEMP 97.7
[2025-01-08] MEDS: HYDROcodone/acetaminophen 5mg/325mg tablet PO ONE (20:29)
[2025-01-08 20:47] VITALS: BP 119/62; PULSE 79; O2SAT 100
[2025-01-08 20:49] VITALS: RESP 16
== END 2025-01-08 21:32 | disposition home or self-care (01) ==
LOC: ER 16:54
DX: M25.552 Pain in left hip (principal); J45.909 Unspecified asthma, uncomplicated; E03.9 Hypothyroidism, unspecified; K21.9 Gastro-esophageal reflux disease without esophagitis; Z88.5 Allergy status to narcotic agent; Z88.8 Allergy status to other drugs, medicaments and biological substances; Z79.82 Long term (current) use of aspirin; Z79.52 Long term (current) use of systemic steroids; Z79.899 Other long term (current) drug therapy; Z98.890 Other specified postprocedural states; W18.30XA Fall on same level, unspecified, initial encounter; Y93.89 Activity, other specified; Y92.89 Other specified places as the place of occurrence of the external cause; Y99.8 Other external cause status
CPT/HCPCS: 72100; 73502; 99284

== ENCOUNTER 2025-07-24 15:19 | Emergency (ER) | payer MEDICARE, OTHER ==
[~2025-07-24] VITALS: Ht 154.9 cm; Wt 50.8 kg
[~2025-07-24 15:19] MED LIST changes: -LEVO88CA4 PO; +LEVO88CA5 PO; -ZINC50CA2 PO; +ZINC50CA5 PO
[2025-07-24 18:40] LABS: MEAN PLATELET VOLUME 8.5 FL (7.4-10.4); RED CELL DISTRIBUTION WIDTH 17.3 % (11.5-14.5)
[2025-07-24 18:50] LABS: CREATININE 1.33 MG/DL (0.40-0.90); TOTAL CARBON DIOXIDE 21.6 MMOL/L (24-32); eCRCL 22 ML/MIN; eGFR 38 ML/MIN
[2025-07-24 18:54] VITALS: TEMP 98.9
--- NOTE | 2025-07-24 18:58 | Physician Documentation ---
History of Present Illness ~ Chief Complaint: See Chief Complaint Stated Complaint: POSTOP INFECTION Time Seen by MD: 17:29 Primary Medical Doctor: Dr. Mcdonald, Dr. Baires Source: patient Mode of Arrival: POV Exam Limitations: no limitations HPI 89-year-old female with venous insufficiency and lymphedema who is here due to redness around her procedure site with associated "discomfort" x 4-5days after having her GSV ablated [address] Henderson. She states the discomfort at the site has not worsened but that the redness is now involving a bigger area which is why she came to ER today. She had an angiogram yesterday with Dr. Croft but states she is not sure if Dr. Croft saw it. She has not reached out to Dr. Henderson. She states she feels fine otherwise. She denies fever, chills, malaise, nausea. She denies Tetanus witin 5 years: Yes Medication Reconciliation Allergies: Coded Allergies: Aahqypx-IGB-NaM Reductase Inhibitor (Verified Adverse Reaction, Intermediate, SEVERE MUSCLE PAIN, 07/24/25) morphine (Verified Adverse Reaction, Unknown, THROW UP, 07/24/25) Uncoded Allergies: SULFA (Adverse Reaction, Unknown, nausea, 08/30/23) Scheduled Ascorbic Acid (Vitamin C), 1 CAP PO DAILY, (Reported) Aspirin (Aspirin EC), 1 TAB PO DAILY, (Reported) Azelastine/Fluticasone (Azelastin-Flutic 137-50Mcg Spr), 2 SPR NA HS, (Reported) Biotin (Biotin), Unknown Dose PO DAILY, (Reported) Budesonide (Budesonide ER), Unknown Dose TAL DAILY, (Reported) Cholecalciferol (Vitamin D), 5,000 UNITS PO DAILY, (Reported) Cyanocobalamin (Vitamin B-12) (Vitamin B12), 1 TAB PO DAILY, (Reported) Famotidine (Famotidine), 1 TAB PO BID, (Reported) Fluticasone/Vilanterol (Breo Ellipta 200-25 Mcg INH), 1 INHALER INH DAILY, (Reported) Lactobacillus Combo No.10 (Probiotic), 1 TAB PO DAILY, (Reported) Levothyroxine Sodium (Synthroid), 1 TABLET PO Q48H, (Reported) Levothyroxine Sodium (Levothyroxine), 1 CAP PO Q48H, (Reported) Lutein/Zeaxanthin (Ocuvite Lutein 25-5 mg Softgel), 1 CAP PO DAILY, (Reported) Mupirocin (Centany), 1 APPLIC TOP HS, (Reported) Potassium Chloride 8 MEQ* (Slow-K 8 Meq*), 3 TAB PO QAM, (Reported) Theophylline Anhydrous (Theophylline), 400 MG PO DAILY, (Reported) Triamterene/Hydrochlorothiazid (Triamterene-Hctz 37.5-25 Mg Cp), 1 CAP PO DAILY, (Reported) Vitamin E Mixed (Vitamin E), Unknown Dose PO DAILY, (Reported) Zinc Acetate (Galzin), 1 CAP PO DAILY, (Reported) Scheduled PRN Albuterol Sulfate (Ventolin Hfa), 2 PUFFS INH Q4HPRN PRN for SOB or wheezing, ( Reported) Past Medical History Past Medical History: Sinusitis, Asthma, GERD, Hypothyroidism, Extremity Fracture Past Surgical History: orthopedic surgeries Alcohol Use: None Drug Use: none Lives with: Family Lives In: Home Review of Systems All Other Systems at this time: Reviewed and Negative Physical Exam Vital Signs: Temperature: 99.2, Source: Oral, Heart Rate: 91, Respiratory Rate: 14, BP: 153/66, Pulse Oximetry: 100, Weight: 50.800 Oxygen Flow Rate: 0 Physical Exam GENERAL: Alert, no acute distress. HEENT: NCAT, EOMI, PERRL, moist oral mucosa. NECK: Supple, trachea midline. CARDIAC: Regular rate and rhythm, no murmurs, rubs, or gallops. RIGHT FOOT WRAPPED UNABLE TO PALPATE PULSE, PATIENT REFUSES TO LET ME REMOVE WRAPPING. LEFT LEG PEDAL PULSES 2+. RESPIRATORY: Equal breath sounds, clear to auscultation bilaterally, no respiratory distress. MUSCULOSKELETAL: Normal range of motion OF RIGHT KNEE JOINT, KNEE JOINT IS NORMAL-NO EFFUSION, NO ERYTHEMA OR TTP OVER JOINT SPACES. , Normal gait. NEUROLOGICAL: Awake, alert, and oriented x 3. SKIN: Warm/dry, no pallor, no rash. RIGHT LEG MEDIAL POSTERIOR KNEE THERE IS VIOLAEOUS AREA OF SKIN MEASURING ABOUT 1CM, OVER THE VIOLACEOUS AREA THERE IS A VERY SMALL 3-4MM CRUST PRESENT, SKIN IS DRY, NO ACTIVE DRAINAGE. AREA OF ERYTHEMA SURROUNDING THIS AREA IS ABOUT 8CM IN DIAMETER AND IS MILDLY TTP. ERYTHEMA IS NOT CIRCUMFERENTIAL AROUND THE LEG AND THERE IS NO ERYTHEMATOUS STREAK UP THE LEG. IN CENTER OF AREA OF ERYTHEMA AREA IS INDURATED, NO FLUCTUANCE. AREA OF INDURATION SPANS DIAMETER OF ABOUT 4CM. NO ERYTHEMATOUS STREAK UP LEG. PSYCH: Alert and appropriate. Affect congruent with mood. Speech is clear. Good eye contact. Procedures Procedures VENOUS U/S RIGHT LEG: NEGATIVE FOR DVT Progress Progress Note SPOKE TO DR. HENDERSON WE HAD A LENGTHY DISCUSSION HE ALSO SPOKE WITH THE PATIENT. WE BOTH FELT THAT IT WAS REASONABLE TO DISCHARGE HER ON KEFLEX GIVEN THE FACT THAT HER WHITE BLOOD CELL COUNT WAS 5.5 YESTERDAY AT [facility] IN TODAY IT IS 5.8, PATIENT IS AFEBRILE, HER ULTRASOUND FOR DVT WAS NEGATIVE. PATIENT APPARENTLY HAS LYMPHEDEMA AND THE THOUGHT IS THAT SOME OF THIS ERYTHEMA MAY BE FROM THE LYMPHEDEMA AND POSSIBLY SHE MAY BE HAVING A REACTION TO THE GLUE THAT WAS PLACED WHEN HE DID THE PROCEDURE ON June BUT FELT THAT SENDING HER HOME ON ANTIBIOTICS TO FOLLOW UP IN THE OFFICE WAS THE APPROPRIATE STEP GIVEN THE SCENARIO. Results/Orders Reviewed/noted all lab results: Yes Results/Orders Orders - FERNANDO GRANT Vl Venous (07/24/25 18:10) BMP (07/24/25 18:10) Completed Orders - FERNANDO GRANT Cbc/Diff (07/24/25 18:10) Vital Signs 07/24/25 07/24/25 07/24/25 15:30 17:33 17:40 Temp 100.7 99.2 Pulse 100 91 Resp 18 16 14 B/P (MAP) 143/45 153/66 (95) Pulse Ox 100 100 O2 Flow Rate 0 Laboratory Tests Test 07/24/25 18:25 White Blood Count 5.8 Red Blood Count 3.41 L Hemoglobin 9.2 L Hematocrit 28.0 L Mean Corpuscular Volume 82.1 Mean Corpuscular Hemoglobin 26.9 L Mean Corpuscular Hemoglobin Concent 32.8 L Red Cell Distribution Width 17.3 H Platelet Count 251 Mean Platelet Volume 8.5 Neutrophils (%) (Auto) 67.6 Lymphocytes (%) (Auto) 16.9 L Monocytes (%) (Auto) 13.9 H Eosinophils (%) (Auto) 0.9 Basophils (%) (Auto) 0.7 Neutrophils # (Auto) 3.9 Lymphocytes # (Auto) 1.0 L Monocytes # (Auto) 0.8 Eosinophils # (Auto) 0.1 Basophils # (Auto) 0.0 CBC Comment Chemistry Comments Medical Decision Making Additional Comment NO DVT ON U/S, NO LYMPHANGITIS ON EXAM NO PROXIMAL ERYTHEMATOUS STREAK UP LEG, NO FLUCTUANCE OR EVIDENCE OF AN ABSCESS, NO EVIDENCE OF AN ARTERIAL CLAUDICATION CONSIDERING SHE HAD A ANGIOGRAM YESTERDAY WITH DR. CROFT, NO ITCHING OR SIGNS/SYMPTOMS OF ALLERGIC REACTION Departure Time of Disposition: 19:01 Disposition: 01 HOME / SELF CARE / HOMELESS Impression: Primary Impression: Cellulitis Qualified Codes: L03.115 - Cellulitis of right lower limb Condition: Stable Discharge Instructions: Cellulitis, Adult, [id number] Additional Instructions: F/U WITH DR. HENDERSON ON SATURDAY IF RED STREAK UP LEG LEG OR REDNESS SPREADING OUTSIDE OF LINES PLACED ON SKIN, FEVER, OR FEELING ILL, RETURN TO ER ANTIBIOTIC SENT TO PHARMACY Referrals: NO PRIMARY CARE PROVIDER (PCP) Prescriptions Cephalexin*Monohydrate* (Keflex*) 500 Mg Capsule 1 CAP PO QID for 10 Days, #40 CAP Prov: FERNANDO GRANT 07/24/25 Education Educated: Patient, Family Educated regarding: diagnosis, treatment, need for follow up Signature Scribe Signature: Fredy Attestation: FERNANDO BLACK Jul 24, 2025 18:58
[2025-07-24] MEDS ORDERED: CEPH-585 PO (19:02)
[2025-07-24 19:17] VITALS: BP 146/57; PULSE 89; RESP 16; O2SAT 98
== END 2025-07-24 19:19 | disposition home or self-care (01) ==
LOC: ER 15:20
DX: L03.115 Cellulitis of right lower limb (principal); E03.9 Hypothyroidism, unspecified; J45.909 Unspecified asthma, uncomplicated; Z88.8 Allergy status to other drugs, medicaments and biological substances; Z79.82 Long term (current) use of aspirin
CPT/HCPCS: 36415; 80048; 85025; 93971; 99284